=== PATIENT | male | born 1940 | race Caucasian/White ===

== ENCOUNTER → 2017-06-05 | Outpatient (CLI) | payer BC ==
[~2017-06-05] VITALS: Ht 167.6 cm; Wt 88.0 kg
[2017-06-05 09:23] VITALS: Ht 167.6 cm; Wt 88.0 kg
== END | disposition home or self-care (01) ==
LOC: C.NRED 13:53
PROVIDERS: ATTEND Internal Medicine
DX: E11.9 Type 2 diabetes mellitus without complications (principal)